=== PATIENT | male | born 1990 | race Caucasian/White ===

== ENCOUNTER 2017-10-07 08:46 | Inpatient (IN) | payer BC, OTHER ==
[~2017-10-07] VITALS: Ht 180.3 cm; Wt 90.7 kg
[2017-10-16] MEDS ORDERED: MAG HYDROX/AL HYDROX/SIMETH 30 ML LIQUID UDC PO PRN (22:45)
[2017-10-16] MEDS ORDERED: IBUPROFEN 400 MG TABLET PO PRN (22:45)
[2017-10-16] MEDS ORDERED: MIRALAX 17 GM POWD.PACK PO PRN (22:45)
[2017-10-16] MEDS ORDERED: ONDANSETRON ODT 4 MG TAB.RAPDIS SL PRN (22:45)
[2017-10-16] MEDS ORDERED: ACETAMINOPHEN 325 MG TABLET PO PRN (22:45)
[2017-10-16] MEDS ORDERED: diphenhydrAMINE 50 MG CAPSULE PO PRN (22:45)
[2017-10-16] MEDS ORDERED: ONDANSETRON 4 MG/2 ML VIAL IM PRN (22:45)
[2017-10-16] MEDS ORDERED: BUPRENORPHINE HCL 2 MG TAB.SUBL SL PRN (22:45)
[2017-10-16] MEDS ORDERED: CLONIDINE HCL 0.1 MG TABLET PO PRN (22:45)
[2017-10-16] MEDS ORDERED: DICYCLOMINE HCL 20 MG TABLET PO PRN (22:45)
[2017-10-16] MEDS ORDERED: LOPERAMIDE HCL 2 MG CAPSULE PO PRN ×2 (22:45)
[2017-10-16] MEDS ORDERED: HYDROXYZINE PAMOATE 25 MG CAPSULE PO PRN (22:45)
[2017-10-16] MEDS ORDERED: MAGNESIUM HYDROXIDE 30 ML LIQUID UDC PO PRN (22:45)
[2017-10-16] MEDS ORDERED: DICY20TA11 PO (23:07)
[2017-10-16] MEDS ORDERED: QUET150T3 PO (23:07)
[2017-10-16] MEDS ORDERED: BUPR200T PO (23:07)
[2017-10-16] MEDS ORDERED: CLON0.3T PO (23:07)
[2017-10-17] VITALS: BP 120/61
[2017-10-17 04:00] VITALS: BP 140/92
[2017-10-17 07:50] LABS: *AMPHETAMINE, URINE POSITIVE (NEGATIVE); *BARBITURATE, URINE NEGATIVE (NEGATIVE); *CANNABINOID, URINE POSITIVE (NEGATIVE); *COCCAINE, URINE NEGATIVE (NEGATIVE); *OPIATE, URINE POSITIVE (NEGATIVE); *PHENCYCLIDINE SCREEN,URINE NEGATIVE (NEGATIVE)
[2017-10-17 08:00] VITALS: BP 131/61
[2017-10-17] MEDS: MULTIVITAMINS,THERAPEUTIC TABLET PO SCH (09:00)
[2017-10-17] MEDS ORDERED: TUBERCULIN,PURIF.PROT.DERIV. 5 TU/0.1 ML TEST ID ONE (09:00)
[2017-10-17 10:43] LABS: BASOPHILS % (AUTO) 0.4 % (0.0-2.0); EOSINOPHILS # (AUTO) 0.2 K/uL (0.0-0.7); EOSINOPHILS % (AUTO) 4.3 % (0.0-7.0); HEMATOCRIT 37.6 % (36.7-47.1); HEMOGLOBIN 12.7 g/dL (12.5-16.3); LYMPHOCYTES # (AUTO) 1.7 K/uL (20.0-40.0); LYMPHOCYTES % (AUTO) 34.8 % (20.5-51.5); MEAN CORPUSCULAR HEMOGLOBIN 29.2 uug (23.8-33.4); MEAN CORPUSCULAR HGB CONC 34 g/dL (32.5-36.3); MEAN CORPUSCULAR VOLUME 86.5 fL (73.0-96.2); MONOCYTES # (AUTO) 0.5 K/uL (2.0-10.0); MONOCYTES % (AUTO) 9.5 % (0.0-11.0); NEUTROPHILS # (AUTO) 2.5 K/uL (1.8-8.9); PLATELET COUNT (AUTO) 141 K/uL (152-348); RED BLOOD CELL COUNT(AUTO) 4.34 MIL/uL (4.06-5.63); WHITE BLOOD COUNT (AUTO) 4.9 K/uL (3.6-10.2)
[2017-10-17 11:36] LABS: ETHANOL < 3 MG/DL (0-0)
[2017-10-17 11:38] LABS: ALANINE AMINOTRANSFERASE 14 U/L (16-63); ALKALINE PHOSPHATASE 59 U/L (50-136); AMYLASE 34 U/L (25-115); ASPARTATE AMINOTRANSFERASE 10 U/L (15-37); BILIRUBIN,TOTAL 0.2 mg/dL (0.2-1.0); CARBON DIOXIDE 31 mmol/L (21-32); CHLORIDE 105 mmol/L (98-107); CREATININE 1.2 mg/dL (0.6-1.3); GLUCOSE 101 mg/dL (74-106); LIPASE 84 U/L (73-393); MAGNESIUM 1.7 mg/dL (1.8-2.4); POTASSIUM 3.7 mmol/L (3.5-5.1); TOTAL PROTEIN, SERUM 5.7 g/dL (6.4-8.2); UREA NITROGEN, BLOOD 16 mg/dL (7-18)
[2017-10-17 11:47] LABS: THYROID STIMULATING HORMONE 0.623 mIU/mL (0.358-3.740)
[2017-10-17 12:00] VITALS: BP 109/57
[2017-10-17] MEDS ORDERED: MAGNESIUM OXIDE 400 MG TABLET PO ONE ×2 (14:00→17:00)
[2017-10-17 16:00] VITALS: BP 147/81
[2017-10-17] MEDS: BUPRENORPHINE HCL 2 MG TAB.SUBL SL PRN ×2 (18:01→22:06)
[2017-10-17 20:00] VITALS: BP 135/84
[2017-10-17] MEDS: QUETIAPINE FUMARATE 100 MG TABLET PO SCH (21:09)
[2017-10-17] MEDS: METHOCARBAMOL 750 MG TABLET PO PRN (21:10)
[2017-10-18 07:06] LABS: HEPATITIS B SURFACE AG Negative (Negative)
[2017-10-18 08:47] VITALS: BP 108/54
[2017-10-18] MEDS ORDERED: 5 DAY TAPER BUPRENORPHINE -SERENITY PROTOCOL SL PRN (09:00)
[2017-10-18] MEDS: buPROPion SR 150 MG TABLET.SA PO SCH (09:00)
[2017-10-18] MEDS: METHOCARBAMOL 750 MG TABLET PO PRN (09:32)
[2017-10-18] MEDS: MULTIVITAMINS,THERAPEUTIC TABLET PO SCH (09:33)
[2017-10-18] MEDS: BUPRENORPHINE HCL 2 MG TAB.SUBL SL SCH ×4 (09:33→21:09)
[2017-10-18 12:29] VITALS: BP 157/111
[2017-10-18] MEDS: LACTULOSE 20 G/30 ML LIQUID UDC PO PRN (14:16)
[2017-10-18] MEDS: GABAPENTIN 300 MG CAPSULE PO SCH (14:16)
[2017-10-18 16:46] VITALS: BP 122/65
[2017-10-18 20:00] VITALS: BP 115/65
[2017-10-18] MEDS ORDERED: GABAPENTIN 300 MG CAPSULE PO SCH (21:00)
[2017-10-18] MEDS: QUETIAPINE FUMARATE 100 MG TABLET PO SCH (21:09)
[2017-10-19] VITALS: BP 125/61
[2017-10-19 04:00] VITALS: BP 118/58
[2017-10-19 08:00] VITALS: BP 116/63
[2017-10-19] MEDS: buPROPion SR 150 MG TABLET.SA PO SCH (09:00)
[2017-10-19] MEDS: MULTIVITAMINS,THERAPEUTIC TABLET PO SCH (09:04)
[2017-10-19] MEDS: GABAPENTIN 300 MG CAPSULE PO SCH ×2 (09:04→15:00)
[2017-10-19] MEDS: BUPRENORPHINE HCL 2 MG TAB.SUBL SL SCH ×3 (09:04→21:20)
[2017-10-19 12:00] VITALS: BP 103/67
[2017-10-19] MEDS: LACTULOSE 20 G/30 ML LIQUID UDC PO PRN (14:59)
[2017-10-19] MEDS ORDERED: IBUPROFEN 600 MG TABLET PO PRN (15:30)
[2017-10-19 16:16] VITALS: BP 114/63
[2017-10-19 20:00] VITALS: BP 116/77
[2017-10-19] MEDS ORDERED: GABAPENTIN 300 MG CAPSULE PO SCH (21:00)
[2017-10-19] MEDS: CLONIDINE HCL 0.1 MG TABLET PO SCH (21:19)
[2017-10-19] MEDS: BACLOFEN 10 MG TABLET PO SCH (21:19)
[2017-10-19] MEDS: QUETIAPINE FUMARATE 100 MG TABLET PO SCH (21:20)
[2017-10-20] VITALS: BP 112/61
[2017-10-20 08:00] VITALS: BP 86/53
[2017-10-20] MEDS: MULTIVITAMINS,THERAPEUTIC TABLET PO SCH (08:46)
[2017-10-20] MEDS: BACLOFEN 10 MG TABLET PO SCH (08:46)
[2017-10-20] MEDS: GABAPENTIN 300 MG CAPSULE PO SCH ×3 (08:46→20:08)
[2017-10-20] MEDS: CLONIDINE HCL 0.1 MG TABLET PO SCH ×2 (08:46→20:08)
[2017-10-20] MEDS: buPROPion SR 150 MG TABLET.SA PO SCH (08:48)
[2017-10-20] MEDS ORDERED: BUPRENORPHINE HCL 2 MG TAB.SUBL SL SCH (09:00)
[2017-10-20 12:00] VITALS: BP 101/52
[2017-10-20] MEDS ORDERED: KETOROLAC TROMETHAMINE 30 MG INJ IM PRN (12:00)
[2017-10-20] MEDS: BUPRENORPHINE HCL 2 MG TAB.SUBL SL SCH ×2 (14:20→20:08)
[2017-10-20] MEDS: BACLOFEN 20 MG TABLET PO SCH ×2 (14:21→20:08)
[2017-10-20 16:00] VITALS: BP 103/50
[2017-10-20 20:00] VITALS: BP_SYST 116; BP_DIAS 67; BP_DIAS 70
[2017-10-20] MEDS: LACTULOSE 20 G/30 ML LIQUID UDC PO PRN (20:08)
[2017-10-20] MEDS ORDERED: QUETIAPINE FUMARATE 100 MG TABLET PO SCH (21:00)
[2017-10-20] MEDS: QUETIAPINE FUMARATE 200 MG TABLET PO SCH (21:25)
[2017-10-21] VITALS: BP 121/76
[2017-10-21 08:00] VITALS: BP 124/54
[2017-10-21] MEDS: CLONIDINE HCL 0.1 MG TABLET PO SCH ×2 (09:00→21:27)
[2017-10-21] MEDS: buPROPion SR 150 MG TABLET.SA PO SCH (09:00)
[2017-10-21] MEDS: MULTIVITAMINS,THERAPEUTIC TABLET PO SCH (09:47)
[2017-10-21] MEDS: BACLOFEN 20 MG TABLET PO SCH ×3 (09:47→21:27)
[2017-10-21] MEDS: GABAPENTIN 300 MG CAPSULE PO SCH ×3 (09:47→21:27)
[2017-10-21] MEDS: BUPRENORPHINE HCL 2 MG TAB.SUBL SL SCH ×3 (09:47→21:28)
[2017-10-21 12:00] VITALS: BP 133/59
[2017-10-21 16:00] VITALS: BP 119/67
[2017-10-21 20:00] VITALS: BP 115/74
[2017-10-21] MEDS: QUETIAPINE FUMARATE 200 MG TABLET PO SCH (21:27)
[2017-10-22 08:00] VITALS: BP 102/50
[2017-10-22] MEDS ORDERED: BUPRENORPHINE HCL 2 MG TAB.SUBL SL SCH (09:00)
[2017-10-22] MEDS: CLONIDINE HCL 0.1 MG TABLET PO SCH ×3 (09:05→21:00)
[2017-10-22] MEDS: buPROPion SR 150 MG TABLET.SA PO SCH (09:05)
[2017-10-22] MEDS: BACLOFEN 20 MG TABLET PO SCH ×3 (09:05→21:27)
[2017-10-22] MEDS: MULTIVITAMINS,THERAPEUTIC TABLET PO SCH (09:05)
[2017-10-22] MEDS: GABAPENTIN 300 MG CAPSULE PO SCH ×3 (09:05→21:27)
[2017-10-22 12:00] VITALS: BP 101/53
[2017-10-22 16:00] VITALS: BP 121/59
[2017-10-22] MEDS ORDERED: GABA-534 PO (17:43)
[2017-10-22] MEDS ORDERED: IBUP-1955 PO (17:43)
[2017-10-22] MEDS ORDERED: DICY20TA28 PO (17:43)
[2017-10-22] MEDS ORDERED: BACL20TA PO (17:43)
[2017-10-22] MEDS ORDERED: QUET200T PO (17:43)
[2017-10-22] MEDS ORDERED: HYDR-3895 PO (17:43)
[2017-10-22] MEDS ORDERED: CLON0.1T14 PO (17:43)
[2017-10-22 20:00] VITALS: BP 104/54
[2017-10-22] MEDS: QUETIAPINE FUMARATE 200 MG TABLET PO SCH (21:27)
[2017-10-22] MEDS: LACTULOSE 20 G/30 ML LIQUID UDC PO PRN (21:27)
[2017-10-23] VITALS: BP 112/53
[2017-10-23 04:00] VITALS: BP 96/64
[2017-10-23 08:09] VITALS: BP 98/60
[2017-10-23 08:29] VITALS: BP 96/60
[2017-10-23] MEDS: CLONIDINE HCL 0.1 MG TABLET PO SCH (08:29)
[2017-10-23] MEDS: GABAPENTIN 300 MG CAPSULE PO SCH (08:54)
[2017-10-23] MEDS: MULTIVITAMINS,THERAPEUTIC TABLET PO SCH (08:54)
[2017-10-23] MEDS: buPROPion SR 150 MG TABLET.SA PO SCH (08:54)
[2017-10-23] MEDS: BACLOFEN 20 MG TABLET PO SCH (08:54)
== END 2017-10-23 09:42 | disposition other institution (70) | DRG 895 ==
LOC: EDSEX → SRC 10-16 22:03
PROVIDERS: ADMIT Internal Medicine; ATTEND Internal Medicine
PROC: HZ2ZZZZ Detoxification Services for Substance Abuse Treatment (ICD-10-PCS; principal; 2017-10-16)
PROC: HZ31ZZZ Individual Counseling for Substance Abuse Treatment, Behavioral (ICD-10-PCS; 2017-10-18)
DX: F11.23 Opioid dependence with withdrawal (principal); D69.6 Thrombocytopenia, unspecified; I15.9 Secondary hypertension, unspecified; E83.42 Hypomagnesemia; F17.210 Nicotine dependence, cigarettes, uncomplicated; Z59.0 Homelessness; Z79.899 Other long term (current) drug therapy; Z59.1 Inadequate housing; F90.9 Attention-deficit hyperactivity disorder, unspecified type; F32.9 Major depressive disorder, single episode, unspecified; F12.90 Cannabis use, unspecified, uncomplicated; E88.09 Other disorders of plasma-protein metabolism, not elsewhere classified; F15.23 Other stimulant dependence with withdrawal
CPT/HCPCS: 36415; 80307; 80324; 80349; 80361; 83690; 83735; 84443; 85025; 86592; 86705; 86803; 87340; 87806; G0480

== ENCOUNTER 2017-11-07 19:47 | Inpatient (IN) | payer BC, OTHER ==
[~2017-11-07] VITALS: Ht 180.3 cm; Wt 88.5 kg
[~2017-11-07 19:47] MED LIST: BACL20TA PO; BUPR200T PO; CLON0.1T14 PO; DICY20TA28 PO; GABA-534 PO; HYDR-3895 PO; IBUP-1955 PO; QUET150T3 PO; QUET200T PO
--- NOTE | 2017-11-07 21:50 | NUR ---
INTAKE NOTES: Addendum: 11/07/17 at 2209 by ANDREA FOREMAN RN PRE-ADMISSION NOTES: Patient is a 27 years old male assessed in intake office. Patient is alert and oriented x3 with unstable gait r/t "heroin via IV one gram and Methamphetamine smoke 1 gram used one hour ago". VS impossible taking r/t constantly body's movement. Will taking in his room later.
--- NOTE | 2017-11-07 22:00 | NUR ---
ADMISSION NOTE New patient is a 27 year old male admitted to [facility] on 11/07/2017 @2200 for medically supervised withdrawal from Alcohol, Opioid and Methamphetamines. Patient is alert and oriented x2, for name and place, speech is unclear and slurred, unstable gait. Patient is moderately intoxicated. Patient reports NKA. Patient is on Full Code, Regular diet, Fall and Seizures precautions. Patient denies History of Seizures. Past Medical History: Anxiety, Depression. Patient denies Past Surgical History. PCP - patient can't recalled the name. Pre-assessment completed in intake. Patient unable provided UDS test at this times. Height: 67 in, Weight: 130 lbs by standing scale. VS upon admission: BP:105/80, HR 87, T: 98.3, RA SPO2 98%., pain level "0/10". Patient denies any pain at this time. COWS 25, CIWA 22 . The patient presented with anxiety/ so irritable, agitation, nervousness, gross tremors, pupils so dilated, piloerection of skin, flushing, restlessness, and yawning. Patient denies SI/HI. Upon initial assessment respirations unlabored and even. Patient denies SOB and chest pain. Lungs Sounds are clear bilaterally. Bowel Sounds active in all x4 quadrants. Abdomen is soft and non-tender. Skin is warm and dry to touch. Patient has scabs from picking on his left and right side of neck - open scabs, on his chest, and upper and lower extremities - closed scabs. Patient reports the following Substances Use: 1. "Alcohol every day. "can't recalls name, dosage, and time last used". 2. "Heroine IV 1 gram every day during last 10 days. Last used 1 gram via IV on 11/07/2017 @2000". 3. "Methamphetamine smoke 1 gram every day last week. Last used 1 gram via smoke on 11/07/2017 @1999". Patient was in multiple treatments, and last was in [facility] on 10/17/2017 to . Patient reports the longest period of sobriety being "15 days - 10/17/2017 to 11/01/2017". Patient reports "Tobacco use since 2003 every day 1 pack = 20 cigarettes". Patient brought medications. Reconciliation Medications done. Patient oriented to his room, Nurse Call Light, and [facility]. 1:1 sitter for safety r/t unstable gait at bedside with patient. Doctor Nabor Betancur MD aware for patient condition. All needs met. Safety measures on place. Call light within reach, bed in lowest position and locked, padded rails up bilaterally rails up bilaterally. Will continue to monitor closely. Addendum: 11/08/17 at 0351 by ANDREA FOREMAN RN Height: 71in, Weight: 195lbs by standing scale.
[2017-11-07] MEDS ORDERED: diphenhydrAMINE 50 MG CAPSULE PO PRN (22:15)
[2017-11-07] MEDS ORDERED: LOPERAMIDE HCL 2 MG CAPSULE PO PRN ×2 (22:15)
[2017-11-07] MEDS ORDERED: MIRALAX 17 GM POWD.PACK PO PRN (22:15)
[2017-11-07] MEDS ORDERED: ONDANSETRON ODT 4 MG TAB.RAPDIS SL PRN (22:15)
[2017-11-07] MEDS ORDERED: IBUPROFEN 400 MG TABLET PO PRN (22:15)
[2017-11-07] MEDS ORDERED: LORAZEPAM 1 MG TABLET PO PRN ×2 (22:15)
[2017-11-07] MEDS ORDERED: MAGNESIUM HYDROXIDE 30 ML LIQUID UDC PO PRN (22:15)
[2017-11-07] MEDS ORDERED: ACETAMINOPHEN 325 MG TABLET PO PRN (22:15)
[2017-11-07] MEDS ORDERED: THIAMINE HCL 200 MG/2 ML VIAL IM ONE (22:15)
[2017-11-07] MEDS ORDERED: DICYCLOMINE HCL 20 MG TABLET PO PRN (22:15)
[2017-11-07] MEDS ORDERED: ONDANSETRON 4 MG/2 ML VIAL IM PRN (22:15)
[2017-11-07] MEDS ORDERED: LORAZEPAM 2 MG/1 ML VIAL IM PRN (22:15)
[2017-11-07] MEDS ORDERED: CLONIDINE HCL 0.1 MG TABLET PO PRN (22:15)
[2017-11-07] MEDS ORDERED: MAG HYDROX/AL HYDROX/SIMETH 30 ML LIQUID UDC PO PRN (22:15)
--- NOTE | 2017-11-07 22:33 | NUR ---
PRN ATIVAN 2 MG/1 ML IM ADMINISTRATION DOCTOR RICHAR BOWLING MD AWARE FOR PATIENT CONDITION, AND ORDERED PRN ATIVAN 2 MG/1 ML IM NOW REGARDLESS FOR FOR UNAVAILABLE UDS TEST. PRN ATIVAN 2 MG/1 ML IM ADMINISTRATED ORDERED. PATIENT TOLERATED WELL. 1:1 SITTER AT BEDSIDE FOR SAFETY R/T UNSTABLE GATE ORDERED. ALL NEEDS MET. SAFETY MEASURES IN PLACE: CALL LIGHT WITHIN REACH, BED LOCKED AND IN THE LOWEST POSITION, PADDED BED RAILS UP X2. WILL CONTINUE TO MONITOR CLOSELY. Addendum: 11/08/17 at 0246 by ANDREA FOREMAN RN ERROR: DOUBLE "FOR". Addendum: 11/08/17 at 0249 by ANDREA FOREMAN RN RN ATIVAN 2 MG/1 ML IM ADMINISTRATED IN RIGHT UPPER ARM - DELTOID MUSCLE.
[2017-11-07] MEDS ORDERED: LORAZEPAM 2 MG/1 ML VIAL IM ONE (22:45)
[2017-11-07] MEDS ORDERED: QUET100T PO (22:46)
[2017-11-07] MEDS ORDERED: CLON0.1T PO (22:46)
[2017-11-07] MEDS ORDERED: LORAZEPAM 2 MG/1 ML VIAL ONE (22:46)
[2017-11-07] MEDS ORDERED: THIAMINE HCL 200 MG/2 ML VIAL ONE (22:46)
--- NOTE | 2017-11-07 23:03 | NUR ---
RE-ASSESSMENT Patient is sleeping. Respirations even and unlabored. RR:15. PRN Ativan 2mg/1ml IM administrated as ordered @2233 was effective. 1:1 sitter at bedside for safety as ordered. All needs met. Safety measures on place. Call light within reach, bed in lowest position and locked, padded rails up bilaterally rails up bilaterally. Will continue to monitor closely.
[2017-11-08] VITALS: BP 107/62
[2017-11-08 04:00] VITALS: BP 129/63
--- NOTE | 2017-11-08 06:59 | NUR ---
END OF SHIFT NOTE: Patient is a 27 year old male admitted to [facility] on 11/07/2017 for Alcohol, Opioid and Methamphetamines dependence. Patient reports NKA. Patient is on Full Code, Regular diet, Fall and Seizures precautions. Patient denies History of Seizures. Past Medical History: Anxiety, Depression. Patient was unable provided UDS test. MRSA from nares collected and sent to lab. Patient reports the following Substances Use: "Alcohol every day. "can't recalls name, dosage, and time last used; Heroine IV 1 gram every day during last 10 days. Last used 1 gram via IV on 11/07/2017 @2000; Methamphetamine smoke 1 gram every day last week. Last used 1 gram via smoke on 11/07/2017 @1999". Last COWS 12, CIWA 12 @0400. Last VS @0400: T: 98.6, HR:91, RR 16, RA O2SAT: 98%, BP: 129/63, pain level: "0/10". Respiration unlabored and even. Skin is warm and dry to touch. Patient has scabs from picking on his left and right side of neck, and closed scabs on his chest, upper and lower extremities. PRN Ativan 2mg/1ml IM administrated as ordered @2233 was effective. Patient slept 5 hours, intake 546 ml. 1:1 sitter at bedside for safety as ordered. All needs met. Safety measures on place. Call light within reach, bed in lowest position and locked, padded rails up bilaterally. Patient endorsed to day shift nurse. Report given.
--- NOTE | 2017-11-08 07:36 | NUR ---
Start of Shift Note: Received patient in his room. Asleep but easily arousable. 1:1 present at bedside within arm's reach. Respirations even and unlabored. Noted with restlessness while laying in bed. Abdomen soft and non-distended wit (+) BS in all 4 quadrants. No complains of abdominal discomfort noted. Patient is unable to provide UDS at this time. Labs to be drawn. Patient is a 27 year old male admitted for ETOH/opiate and methamphetamine dependence. Educated patient on his medication regimen and his current plan of care.
[2017-11-08 08:00] VITALS: BP 100/65
--- NOTE | 2017-11-08 08:00 | NUR ---
COWS/CIWA Deferred: Patient is laying in bed with eyes closed. Breathing even and unlabored. No SOB noted. Easily arousable. No signs of pain or discomfort noted. COWS/CIWA deferred at this time. Addendum: 11/08/17 at 1009 by RITU GE LVN Amended: Links added.
[2017-11-08] MEDS: GABAPENTIN 300 MG CAPSULE PO SCH ×3 (09:00→20:53)
[2017-11-08] MEDS ORDERED: TUBERCULIN,PURIF.PROT.DERIV. 5 TU/0.1 ML TEST ID ONE ×2 (09:00→13:45)
[2017-11-08] MEDS: FOLIC ACID 1 MG TABLET PO SCH (09:00)
[2017-11-08] MEDS: NEOMY/BACITRAC/POLYMI OINT 28.35 GM TUBE TOP SCH ×2 (09:00→17:00)
[2017-11-08] MEDS: MULTIVITAMINS,THERAPEUTIC TABLET PO SCH (09:00)
[2017-11-08] MEDS: THIAMINE HCL 100 MG TABLET PO SCH (09:00)
--- NOTE | 2017-11-08 09:59 | NUR ---
All 0900 meds not administered: Patient is sleeping in bed, had an eventful, restless night. Appears drowsy and sedated at this time. VS stable. 1:1 within arms reach. All 0900 meds not administered. MD Betancur made aware. Patient still requires to provide UDS and labs per .
[2017-11-08] MEDS ORDERED: BUPROPION HCL 150 MG PO SCH (11:00)
[2017-11-08] MEDS: buPROPion SR 150 MG TABLET.SA PO SCH ×2 (11:45→20:53)
[2017-11-08 12:00] VITALS: BP 100/54
--- NOTE | 2017-11-08 12:25 | NUR ---
Wellbutrin PO not administered: Med not administered at this time. Patient continues to appear sedated and drowsy. Breathing even and unlabored. VS stable. Meds held at this time.
--- NOTE | 2017-11-08 13:30 | NUR ---
UDS: Patient is able to provide urine for UDS at this time. Lab called to draw patient's blood.
--- NOTE | 2017-11-08 13:40 | NUR ---
Lab/Off 1:1: Marketing Editor attempted to draw patient's blood but patient strongly refused blood draw at this time. Dr. Betancur made aware. Patient noted to be ambulating steadily. No assistance needed. Notified Dr. Betancur. Per MD, patient is OK to be off 1:1 at this time.
--- NOTE | 2017-11-08 13:51 | NUR ---
Motrin 400 mg PO/Ativan 1 mg PO/Bentyl 20 mg PO given: Patient awake at this time. COWS 13/CIWA 7, complains of anxiety, body aches, stomach cramps, noted with agitation restlessness and sweats. Ativan 1 mg PO given, Bentyl 20 mg PO and Motrin 400 mg PO given. Non-pharmacological interventions provided but ineffective. Will monitor for effectiveness.
--- NOTE | 2017-11-08 14:26 | NUR ---
TB test not administered: Patient refused TB test at this time. Educated patient on the risk and benefits but patient stilll refused. MD Betancur made aware.
[2017-11-08] MEDS ORDERED: BUPRENORPHINE HCL 2 MG TAB.SUBL SL PRN (14:45)
[2017-11-08] MEDS ORDERED: METHOCARBAMOL 750 MG TABLET PO PRN (14:45)
--- NOTE | 2017-11-08 14:51 | NUR ---
Re-assessment: Motrin/Ativan and Bentyl CIWA 4, less anxiety, sweats and tremors noted. Less body aches noted. /10. and stomach cramps relieved. PRN Motrin/Ativan and Bentyl were effective.
--- NOTE | 2017-11-08 15:10 | NUR ---
Subutex 4 mg SL given: 13, patient noted with restlessness, anxiety/agitation, stomach cramps, myalgia and sweats with pupil dilation. Medicated patient with Subutex 4 mg SL as ordered. Will monitor for effectiveness.
[2017-11-08 15:24] LABS: *AMPHETAMINE, URINE POSITIVE (NEGATIVE); *BARBITURATE, URINE NEGATIVE (NEGATIVE); *CANNABINOID, URINE NEGATIVE (NEGATIVE); *COCCAINE, URINE NEGATIVE (NEGATIVE); *OPIATE, URINE POSITIVE (NEGATIVE); *PHENCYCLIDINE SCREEN,URINE NEGATIVE (NEGATIVE)
--- NOTE | 2017-11-08 15:40 | NUR ---
Re-assessment: Subutex COWS 5, less restlessness, less anxiety/agitation and less chills/hot flashes noted. PRN Subutex was effective in reducing patient's withdrawal symptoms.
[2017-11-08 16:00] VITALS: BP 103/55
--- NOTE | 2017-11-08 17:16 | NUR ---
Triple ATB not administered: Patient refused triple ATB ointment at this time. Patient states "I don't need it at this time, thank you." Educated patient on the risk and benefits but patient still refused. Will continue to monitor and encourage.
--- NOTE | 2017-11-08 19:01 | NUR ---
End of Shift Notes: Patient continues to be on PRNs at this time and will be starting his modified 3-day Subutex and Ativan taper as ordered. VS monitored closely. No significant abnormalities noted. Withdrawal symptoms were closely monitored. COWS/CIWA at 0800 deferred. COWS/CIWA at 1300 13/7. Patient presented with anxiety, agitation, tremors, sweats, pupil dilation, stomach cramps, restlessness. Medicated patient with Motrin, Bentyl and Ativan PO at 1351 with help after 1 hour and Subutex 4 mg SL at 1510 with help after 30 minutes. Last COWS 5/CIWA 4 at 1600.Labs to be drawn. UDs in and resulted. Patient was off 1:1 today. Unable to participate in group and activities due to his withdrawal symptoms. Slept for most of the shift. All due meds at 0900 not administered due to oversedation, appears drowsy. No S/I or H/I noted. No AV hallucinations noted. Will continue to monitor closely.
--- NOTE | 2017-11-08 19:10 | NUR ---
Start of shift note Received report from day shift nurse. Pt is a 27 yo male, A+Ox4, presenting to [facility] for ETOH/Opiate/Meth dependence. Pt has NKA, is on Full code status, and on Regular diet. Pt is on Fall and Seizure precautions. Pt has HX of Anxiety and depression. Pt is on 3 day Ativan and 3 day Subutex tapers, tolerated well. No s/s of distress noted at this time. Respirations even and unlabored. Will continue to monitor.
[2017-11-08 20:25] VITALS: BP 122/64
[2017-11-08] MEDS: QUETIAPINE FUMARATE 200 MG TABLET PO SCH (20:54)
[2017-11-08] MEDS ORDERED: LORAZEPAM 1 MG TABLET PO SCH (21:00)
[2017-11-08] MEDS ORDERED: BUPRENORPHINE HCL 2 MG TAB.SUBL SL SCH (21:00)
[2017-11-09 00:22] VITALS: BP 115/68
[2017-11-09 04:10] VITALS: BP 118/73
--- NOTE | 2017-11-09 07:18 | NUR ---
Start of Shift Endorsement received from nightshift nurse. Pt is a 27 y/o male admitted for alcohol and opiate dependence. Pt has been placed on a 3 day Subutex and 3 day Ativan taper under the care of Dr. Betancur. Pt is tolerating both tapers AEB CIWA 3, COWS 3. Pt did not receive any PRN medications. Pt reports sleeping 10 hours. VS WNL. Full Code. PT is alert and oriented x4. Pt is in STABLE condition at this time. Remains compliant with medication and diet regimen. All needs have been met, All safety measures in place per hospital policy. Bed in lowest position, side rails up x2, call-light within reach. Will continue to monitor
[2017-11-09 08:00] VITALS: BP 101/59
[2017-11-09] MEDS ORDERED: LORAZEPAM 1 MG TABLET PO SCH ×3 (09:00→21:00)
[2017-11-09] MEDS: NEOMY/BACITRAC/POLYMI OINT 28.35 GM TUBE TOP SCH ×2 (09:00→17:00)
[2017-11-09] MEDS: THIAMINE HCL 100 MG TABLET PO SCH (09:37)
[2017-11-09] MEDS: BUPRENORPHINE HCL 2 MG TAB.SUBL SL SCH ×3 (09:37→21:32)
[2017-11-09] MEDS: MULTIVITAMINS,THERAPEUTIC TABLET PO SCH (09:37)
[2017-11-09] MEDS: FOLIC ACID 1 MG TABLET PO SCH (09:37)
[2017-11-09] MEDS: GABAPENTIN 300 MG CAPSULE PO SCH ×3 (09:37→21:32)
[2017-11-09] MEDS: buPROPion SR 150 MG TABLET.SA PO SCH ×2 (09:37→21:32)
[2017-11-09 12:00] VITALS: BP 109/55
[2017-11-09] MEDS: BACLOFEN 10 MG TABLET PO SCH ×2 (15:14→21:32)
[2017-11-09 16:00] VITALS: BP 115/52
--- NOTE | 2017-11-09 19:09 | NUR ---
End of Shift Endorsement given nightshift nurse. Pt is a 27 y/o male admitted for alcohol and opiate dependence. Pt has been placed on a 3 day Subutex and 3 day Ativan taper under the care of Dr. Betancur. Pt is tolerating both tapers AEB CIWA 3, COWS 2. Pt did not receive any PRN medications. Pt did not participate in groups and activities despite repeated encouragements. Pt remained in his room and slept. Intake: 1850ml, Void x1, BM x0. VS WNL. Full Code. PT is alert and oriented x4. Pt is in STABLE condition at this time. Remains compliant with medication and diet regimen. All needs have been met, All safety measures in place per hospital policy. Bed in lowest position, side rails up x2, call-light within reach. Will continue to monitor
--- NOTE | 2017-11-09 19:15 | NUR ---
START OF SHIFT NOTE : Pt is a 27 y/o male admitted for alcohol and opiate dependence. Pt has been placed on a 3 day Subutex and 3 day Ativan taper under the care of Dr. Betancur. Pt is tolerating both tapers AEB CIWA 3, COWS 5. Pt is in STABLE condition at this time, resting in his room, watching TV. All needs have been met, all safety measures in place per hospital policy. Bed in lowest position, side rails up x2, call-light within reach. Will continue to monitor closely.
[2017-11-09 20:00] VITALS: BP 118/50
[2017-11-09] MEDS: QUETIAPINE FUMARATE 200 MG TABLET PO SCH (21:32)
[2017-11-09] MEDS: CLONIDINE HCL 0.1 MG TABLET PO SCH (21:33)
--- NOTE | 2017-11-10 06:56 | NUR ---
START OF SHIFT NOTE : Pt is a 27 y/o male admitted for alcohol and opiate dependence. Pt has been placed on a 3 day Subutex and 3 day Ativan taper under the care of Dr. Betancur. Pt is tolerating both tapers. Pt remains compliant with the treatment plan. No PRNs were given during my shift. V/S remain WNL. RR=16, even and unlabored, lungs clear upon auscultation, abdomen soft and non- distended. Pt denies nausea, vomiting and diarrhea. CIWA , COWStaken when pt. was alert during the night, LAST CIWA=3, COWS=5 at 0400 , [id number]=031 ml, voided x1 , slept 11 hours. Safety measures in place : bed on lowest position with side rails x2 up for safety, call light within reach. Will continue to monitor closely and offer help.
--- NOTE | 2017-11-10 07:00 | NUR ---
rec d patient anxious and restless and pt has poor oral intake, voiding qs . no group paticipation in am sleeping a lot. more alert in after noon no tremors or withdrawals noted, continue to monitor for safety and withdrawals
[2017-11-10 08:00] VITALS: BP 113/70
[2017-11-10] MEDS ORDERED: LORAZEPAM 1 MG TABLET PO SCH (09:00)
[2017-11-10] MEDS: BACLOFEN 10 MG TABLET PO SCH (09:00)
[2017-11-10] MEDS ORDERED: BUPRENORPHINE HCL 2 MG TAB.SUBL SL SCH (09:00)
[2017-11-10] MEDS: buPROPion SR 150 MG TABLET.SA PO SCH ×2 (09:30→20:12)
[2017-11-10] MEDS: GABAPENTIN 300 MG CAPSULE PO SCH ×3 (09:30→20:13)
[2017-11-10] MEDS: FOLIC ACID 1 MG TABLET PO SCH (09:30)
[2017-11-10] MEDS: BUPRENORPHINE HCL 2 MG TAB.SUBL SL SCH ×2 (09:31→20:13)
[2017-11-10] MEDS: MULTIVITAMINS,THERAPEUTIC TABLET PO SCH (09:31)
[2017-11-10] MEDS: LORAZEPAM 1 MG TABLET PO SCH ×2 (09:31→20:12)
[2017-11-10] MEDS: THIAMINE HCL 100 MG TABLET PO SCH (09:31)
[2017-11-10] MEDS: CLONIDINE HCL 0.1 MG TABLET PO SCH ×2 (09:32→20:12)
[2017-11-10] MEDS: NEOMY/BACITRAC/POLYMI OINT 28.35 GM TUBE TOP SCH ×2 (09:33→17:00)
[2017-11-10] MEDS ORDERED: BUPRENORPHINE HCL 2 MG TAB.SUBL SL ONE (12:00)
[2017-11-10 13:12] VITALS: BP 95/53
[2017-11-10] MEDS: BACLOFEN 20 MG TABLET PO SCH ×2 (14:25→20:13)
[2017-11-10 16:00] VITALS: BP 119/66
--- NOTE | 2017-11-10 19:15 | NUR ---
START OF SHIFT Received 27 year old male patient admitted on 11/07/17 for ETOH, Methamphetamine and Heroin dependency. Pt is full code with NKA. He reports a PMHx of anxiety and depression. He reports using ETOH of unknown amount. Heroin IV 1 gram daily since 11/01/17. Last dose was 1 gram IV on 11/07/17. And methamphetamine (smoke) 1 gram daily since 11/01/17. Last dose was on 11/07/17. He is placed on a 3 day Ativan and 3 day Subutex taper and is tolerating well. Per endorsement, pt did not receive any PRN medications. Pt is alert and oriented x4, breathing is even and unlabored, complains of anxiety. Safety measures in place. Will monitor.
[2017-11-10 20:00] VITALS: BP 131/87
[2017-11-10] MEDS: QUETIAPINE FUMARATE 200 MG TABLET PO SCH (20:12)
--- NOTE | 2017-11-11 | NUR ---
VITALS REFUSED, COWS/CIWA DEFERRED 0000 vitals refused. COWS and CIWA deferred d/t pt lying in bed with eyes closed noted to be asleep. Breathing is even and unlabored. Safety measures in place. Will monitor.
--- NOTE | 2017-11-11 04:08 | NUR ---
VITALS REFUSED, COWS/CIWA DEFERRED 0400 vitals refused. COWS and CIWA deferred d/t pt lying in bed with eyes closed noted to be asleep. Breathing is even and unlabored. Safety measures in place. Will monitor.
--- NOTE | 2017-11-11 07:13 | NUR ---
END OF SHIFT Pt is a 27 year old male patient admitted on 11/07/17 for ETOH, Methamphetamine and Heroin dependency. Pt is full code with NKA. He reports a PMHx of anxiety and depression. He continues on a 3 day Ativan and 3 day Subutex taper and is tolerating well. He did not receive or request any PRN medications. He slept a total of 7 hrs, Intake:855mL, Void:x2, BM:x1, COWS:5, CIWA:3. Pt remains alert and oriented x4, breathing is even and unlabored, complains of anxiety. Safety measures in place. Endorsed to AM shift.
[2017-11-11 08:00] VITALS: BP 136/79
[2017-11-11] MEDS: buPROPion SR 150 MG TABLET.SA PO SCH ×2 (08:33→21:29)
[2017-11-11] MEDS: FOLIC ACID 1 MG TABLET PO SCH (08:33)
[2017-11-11] MEDS: MULTIVITAMINS,THERAPEUTIC TABLET PO SCH (08:33)
[2017-11-11] MEDS: GABAPENTIN 300 MG CAPSULE PO SCH ×3 (08:33→21:29)
[2017-11-11] MEDS: BACLOFEN 20 MG TABLET PO SCH ×3 (08:34→21:29)
[2017-11-11] MEDS: CLONIDINE HCL 0.1 MG TABLET PO SCH ×3 (08:34→21:29)
[2017-11-11] MEDS: THIAMINE HCL 100 MG TABLET PO SCH (08:34)
[2017-11-11] MEDS: NEOMY/BACITRAC/POLYMI OINT 28.35 GM TUBE TOP SCH ×2 (08:38→17:00)
[2017-11-11] MEDS ORDERED: LORAZEPAM 1 MG TABLET PO SCH (09:00)
[2017-11-11] MEDS ORDERED: BUPRENORPHINE HCL 2 MG TAB.SUBL SL SCH (09:00)
[2017-11-11 12:00] VITALS: BP 106/53
[2017-11-11] MEDS ORDERED: KETOROLAC TROMETHAMINE 30 MG INJ IM PRN (13:15)
[2017-11-11] MEDS ORDERED: METHYL SALICYLATE/MENTHOL CREAM 28 GM TUBE TOP PRN (13:15)
[2017-11-11] MEDS ORDERED: LACTULOSE 20 G/30 ML LIQUID UDC PO PRN (13:15)
[2017-11-11] MEDS ORDERED: IBUPROFEN 600 MG TABLET PO PRN (13:15)
[2017-11-11] MEDS ORDERED: MIRALAX 17 GM POWD.PACK PO ONE (15:00)
[2017-11-11] MEDS ORDERED: CLON0.1T14 PO (15:13)
[2017-11-11] MEDS ORDERED: DIPH50CA37 PO (15:13)
[2017-11-11] MEDS ORDERED: BACL20TA PO (15:13)
[2017-11-11] MEDS ORDERED: HYDR-3895 PO (15:13)
[2017-11-11] MEDS ORDERED: GABA-534 PO (15:13)
[2017-11-11] MEDS ORDERED: BUPR150T10 PO (15:13)
[2017-11-11] MEDS ORDERED: DOCU250C14 PO (15:13)
[2017-11-11] MEDS ORDERED: IBUP-1955 PO (15:13)
[2017-11-11] MEDS ORDERED: DICY20TA28 PO (15:13)
[2017-11-11] MEDS ORDERED: QUET200T PO (15:13)
[2017-11-11 16:00] VITALS: BP 157/100
[2017-11-11] MEDS: DOCUSATE SODIUM 250 MG CAPSULE PO SCH (16:17)
--- NOTE | 2017-11-11 19:05 | NUR ---
Start of shift note Received report from day shift nurse. Pt is a 27 yo male, A+Ox4, presenting to [facility] for ETOH/Opiate/Meth dependence. Pt has NKA, is on Full code status, and on Regular diet. Pt is on Fall and Seizure precautions. Pt has HX of Anxiety and Depression. Pt has completed 3 day Ativan and 3 day Subutex tapers, tolerated well, and is due for discharge tomorrow. No s/s of distress noted at this time. Respirations even and unlabored. Will continue to monitor.
[2017-11-11 20:11] VITALS: BP 122/79
[2017-11-11] MEDS: QUETIAPINE FUMARATE 200 MG TABLET PO SCH (21:29)
[2017-11-12 00:11] VITALS: BP 121/71
[2017-11-12 04:32] VITALS: BP 127/76
--- NOTE | 2017-11-12 07:00 | NUR ---
End of shift note Pt is a 27 yo male, A+Ox4, presenting to [facility] for ETOH/Opiate/Meth dependence. Pt has NKA, is on Full code status, and on Regular diet. Pt is on Fall and Seizure precautions. Pt has HX of Anxiety and Depression. Pt has completed 3 day Ativan and 3 day Subutex tapers, tolerated well, and is due for discharge today. Pt slept for a total of 9 HRS. Last COWS: 2 and Last CIWA: 2 @0400. No s/s of distress noted at this time. Respirations even and unlabored. Will endorse to day shift nurse.
[2017-11-12 08:00] VITALS: BP 113/60
--- NOTE | 2017-11-12 08:10 | NUR ---
START OF SHIFT: RECEIVED PT A/O X 4. HE REPORTS MILD ANXIETY AND STATES DETOX MEDS WERE EFFECTIVE AND HE FEELS READY TO DISCHARGE. HE COMPLETED SUBUTEX/ATIVAN TAPERS. COWS 1 CIWA 1. HE DENIES S/S OF W/D. WILL CONTINUE WITH DISCHARGE PLANNING FOR THIS AM. WILL CONTINUE TO MONITOR.
[2017-11-12] MEDS: NEOMY/BACITRAC/POLYMI OINT 28.35 GM TUBE TOP SCH (09:00)
[2017-11-12] MEDS: GABAPENTIN 300 MG CAPSULE PO SCH (09:04)
[2017-11-12] MEDS: BACLOFEN 20 MG TABLET PO SCH (09:04)
[2017-11-12 09:05] VITALS: BP 113/60
[2017-11-12] MEDS: buPROPion SR 150 MG TABLET.SA PO SCH (09:05)
[2017-11-12] MEDS: CLONIDINE HCL 0.1 MG TABLET PO SCH (09:05)
[2017-11-12] MEDS: THIAMINE HCL 100 MG TABLET PO SCH (09:05)
[2017-11-12] MEDS: DOCUSATE SODIUM 250 MG CAPSULE PO SCH (09:06)
[2017-11-12] MEDS: FOLIC ACID 1 MG TABLET PO SCH (09:06)
[2017-11-12] MEDS: MULTIVITAMINS,THERAPEUTIC TABLET PO SCH (09:07)
--- NOTE | 2017-11-12 09:50 | NUR ---
DISCHARGE: PT IS A/O X4. HE DENIES S/I AND H/I. HE STATES HE IS MOTIVATED TO STAY CLEAN AND FEELS ENTHUSIASTIC. BELONGINGS RETURNED. EDUCATED PT ON DISCHARGE INSTRUCTIONS AND MEDICATIONS. AUTOMOTIVE GLASS TECHNICIAN ESCORTED PT TO LOBBY AT 0940 WHERE HE WAS TRANSPORTED HOME BY FAMILY.
== END 2017-11-12 09:40 | disposition home or self-care (01) | DRG 895 ==
LOC: SRC 21:04
PROVIDERS: ADMIT Internal Medicine; ATTEND Internal Medicine
PROC: HZ2ZZZZ Detoxification Services for Substance Abuse Treatment (ICD-10-PCS; principal; 2017-11-07)
PROC: HZ51ZZZ Individual Psychotherapy for Substance Abuse Treatment, Behavioral (ICD-10-PCS; 2017-11-09)
DX: F15.221 Other stimulant dependence with intoxication delirium (principal); F10.230 Alcohol dependence with withdrawal, uncomplicated; F33.2 Major depressive disorder, recurrent severe without psychotic features; F11.23 Opioid dependence with withdrawal; F90.9 Attention-deficit hyperactivity disorder, unspecified type; Z59.1 Inadequate housing; F12.90 Cannabis use, unspecified, uncomplicated; F17.210 Nicotine dependence, cigarettes, uncomplicated; Z79.899 Other long term (current) drug therapy; S00.80XA Unspecified superficial injury of other part of head, initial encounter; Y33.XXXA Other specified events, undetermined intent, initial encounter; Y92.89 Other specified places as the place of occurrence of the external cause; R26.81 Unsteadiness on feet
CPT/HCPCS: 80307; 80324; 80361; J2060; J3411